=== PATIENT | male | born 1995 | race Hispanic/Latino ===

== ENCOUNTER 2016-08-25 14:55 | Outpatient (CLI) | payer BC ==
--- NOTE | 2016-08-25 20:21 | RAD ---
FACIAL BONES THREE VIEWS 08/25/16 On the lateral view, there was a questionable fracture near the bridge of the nose with minimal disp lacement. It is not seen optimally, but fracture is suspected here. Correlate with site of clinical pain. Otherwise, the facial bones appear intact. The surrounding paranasal sinuses are clear. The orbital rims and zygomatic arches appear intact. IMPRESSION: Suspicious for fracture at the bridge of the nasal bones. POS: HOME
== END 2016-08-25 14:56 | disposition home or self-care (01) ==
LOC: BURRAD 14:55
PROVIDERS: ATTEND Physician Assistant
DX: S09.93XA Unspecified injury of face, initial encounter (principal)
CPT/HCPCS: 70150

== ENCOUNTER 2017-01-23 00:46 | Emergency (ER) | payer BC, OTHER ==
[2017-01-23] MEDS ORDERED: Ibuprofen 800 MG TAB ONE (01:19)
--- NOTE | 2017-01-23 13:53 | RAD ---
LEFT KNEE FOUR VIEWS 01/23/2017 COMPARISON: No prior films were available for comparison. FINDINGS: No fracture, dislocation, or joint effusion is seen. All bone structures appear intact at this time . IMPRESSION: No acute bony findings. POS: HOME
== END 2017-01-23 01:27 | disposition home or self-care (01) ==
LOC: BURERS 00:46
DX: S80.02XA Contusion of left knee, initial encounter (principal); W50.0XXA Accidental hit or strike by another person, initial encounter; Y92.149 Unspecified place in prison as the place of occurrence of the external cause; Y99.0 Civilian activity done for income or pay

== ENCOUNTER 2019-05-15 07:15 | Emergency (ER) | payer BC, OTHER ==
[2019-05-15] MEDS ORDERED: Ibuprofen 200 MG TAB ONE ×2 (07:30)
--- NOTE | 2019-05-15 18:59 | RAD ---
LUMBAR SPINE THREE VIEWS: 05/15/19 No acute fracture was seen. Slight wedging of T11 and T12 was most often physiologic in this age grou p. Unless there was pain in this location, I would tend to discount the findings. There is a little b clare spurring between T11 and T12 which could even suggest there may have been old trauma here. The di sc spaces are normal in height. At most, there may be minor narrowing of L4-L5 but the finding is equ ivocal. There are some bony anomalies involving the L5 posterior elements. See CT report to follow. T he SI joints appear normal. IMPRESSION: No definite acute findings. See CT report to follow. POS: HOME
--- NOTE | 2019-05-15 19:31 | CT ---
CT LUMBAR SPINE: 05/15/[address] of the lumbar spine was done following trauma. The scan covered an area from about the mid T11 level through the upper sacrum. Axial slices were acquired, followed by coronal and sagittal jonny nstructions. No acute fracture was seen at any level. No surrounding hematoma was present. Findings by level follo w: T11: Scan through this level is just through the lower half of the vertebra. The area scanned showed no hint of an acute abnormality. T11-T12: No acute findings. T12-L1: No acute findings. The very minor wedging of T12 is most likely physiologic as I see no other abnormality here. L1-L2: No acute findings. L2-L3: No acute findings. L3-L4: No acute findings. L4-L5: There is a small central disc protrusion at this level that just touches the thecal sac but it does not appear to cause any significant impingement. L5: There is as pars defect on the left at the L5 level. The margins suggest that it is more likely o ld than new. There are also some abnormalities of the posterior elements leading to the spinous proce ss of L5. L5-S1: No evidence of disc herniation at this level. There is probably a spina bifida occulta defect at this level in the top of S1. The SI joints showed no acute changes in the area scanned. IMPRESSION: 1. No evidence of acute fracture. Mild wedging of T11 and T12 are most likely developmental, tho ugh all of T11 was not scanned. If pain is present at that level, then MRI would be useful in ruling out any acute trauma. 2. 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 3. 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 4. Mild central disc protrusion at L4-L5 without gross impingement. Findings discussed with Dr. King at 0819 on 05/15/19. POS: HOME
== END 2019-05-15 08:30 | disposition home or self-care (01) ==
LOC: BURERS 07:15
DX: M54.5 Low back pain (principal); F17.210 Nicotine dependence, cigarettes, uncomplicated; W22.8XXA Striking against or struck by other objects, initial encounter
CPT/HCPCS: 72100; 72131

== ENCOUNTER 2019-10-30 19:45 | Emergency (ER) | payer BC, OTHER ==
--- NOTE | 2019-10-30 20:19 | RAD ---
LEFT MIDDLE FINGER: 10/30/19 HISTORY: Injury to finger. FINDINGS: There is no signs of fracture or dislocation. IMPRESSION: Negative right middle finger. POS: [facility]
== END 2019-10-30 20:19 | disposition home or self-care (01) ==
LOC: BURERS 19:45
DX: S60.132A Contusion of left middle finger with damage to nail, initial encounter (principal); W23.0XXA Caught, crushed, jammed, or pinched between moving objects, initial encounter
CPT/HCPCS: 11740

== ENCOUNTER 2020-01-19 23:32 | Outpatient (CLI) | payer BC, OTHER ==
[2020-01-20 18:43] LABS: SARS-CoV-2 MS2 Positive; SARS-CoV-2 N Gene Negative; SARS-CoV-2 S Gene Negative; SARS-CoV-2 orf1ab Negative
== END 2020-01-19 23:33 | disposition home or self-care (01) ==
LOC: BURLABSP 23:32
PROVIDERS: ATTEND Family Medicine
DX: Z11.59 Encounter for screening for other viral diseases (principal)
CPT/HCPCS: 87635; U0003

== ENCOUNTER 2021-06-25 19:04 | Emergency (ER) | payer BC ==
[2021-06-25 19:43] LABS: #Basophils 0.1 thou/uL (0.0-0.2); #Eosinphils 0.2 thou/uL (0.0-0.7); #Lymphocytes 2.8 thou/uL (1.20-3.40); #Monocytes 0.7 thou/uL (0.11-0.59); #Neutrophils 9.5 thou/uL (1.40-6.50); %Basophils 0.7 % (0.0-1.0); %Eosinophils 1.4 % (0.0-10.0); %Lymphocytes 20.8 % (21.0-51.0); %Monocytes 5.1 % (0.0-10.0); Hemoglobin 16.1 g/dL (14.0-18.0); Mean Corpuscular HGB CONC 35.7 g/dL (32.0-36.0); Mean Corpuscular Hemoglobin 29.5 pg (27.0-31.0); Mean Corpuscular Volume 82.8 fL (78.0-98.0); Mean Platelet Volume 8.7 fL (7.4-10.4); Platelet Count 288 thou/uL (130-400); RBC Distribution Width 12.2 % (11.5-14.5); Red Blood Cell (RBC) Count 5.44 mill/uL (4.70-6.10); White Blood Cell (WBC) Count 13.2 thou/uL (4.8-10.8)
[2021-06-25] MEDS ORDERED: traMADol HCl 50 MG TAB ONE ×2 (19:48)
[2021-06-25] MEDS ORDERED: Dicyclomine 20 MG TAB ONE (19:49)
[2021-06-25 19:51] LABS: Bilirubin Negative (Negative); Blood, Urine Negative (Negative); Clarity Clear (Clear); Glucose, Urine (Dipstick) Negative (Negative); Ketone, Urine Negative (Negative); Leukocyte Negative (Negative); Nitrite Negative (Negative); Protein, Urine (Dipstick) Negative (Neg-Trace); Specific Gravity, Urine 1.025 (1.005-1.030); Urobilinogen 0.2 mg/dL (Less than 2)
[2021-06-25 20:00] LABS: ALT (SGPT) 39 U/L (8-55); AST (SGOT) 27 U/L (5-34); Albumin 4.3 g/dL (3.5-5.0); Alkaline Phosphatase 105 U/L (40-110); Anion Gap 17 mmol/L (10-20); BUN (Urea Nitrogen) 16 mg/dL (8.9-20.6); Bilirubin, Total 0.4 mg/dL (0.2-1.2); Calc. Creatinine Clearance 0 mL/min (70-130); Calcium 9.5 mg/dL (7.8-10.44); Carbon Dioxide 20 mmol/L (22-29); Chloride 106 mmol/L (98-107); Globulin 3.3 g/dL (2.4-3.5); Glucose 97 mg/dL (70-105); Lipase 41 U/L (8-78); Potassium 3.5 mmol/L (3.5-5.1); Protein, Total 7.6 g/dL (6.0-8.3); Sodium 139 mmol/L (136-145)
== END 2021-06-25 20:24 | disposition home or self-care (01) ==
LOC: BURERS 19:04
DX: K80.50 Calculus of bile duct without cholangitis or cholecystitis without obstruction (principal); F17.220 Nicotine dependence, chewing tobacco, uncomplicated
CPT/HCPCS: 80053; 81003; 83690; 85025; 99284

== ENCOUNTER 2024-02-19 11:24 | Emergency (ER) | payer BC, SELFPAY ==
[2024-02-19] MEDS ORDERED: Metoclopramide HCl 10 MG (2 mL) VIAL ONE (12:02)
[2024-02-19] MEDS ORDERED: Ketorolac Tromethamine 30 MG (1 mL) VIAL ONE (12:02)
== END 2024-02-19 13:08 | disposition home or self-care (01) ==
LOC: BURERS 11:24
DX: R51.9 Headache, unspecified (principal); F17.220 Nicotine dependence, chewing tobacco, uncomplicated
CPT/HCPCS: 96374; 96375; J1885; J2765

== ENCOUNTER 2024-09-29 21:36 | Emergency (ER) | payer BC ==
[2024-09-29] MEDS ORDERED: methylPREDNISolone Sod Succ/PF 125 MG/2 ML VIAL ONE (22:03)
== END 2024-09-29 22:10 | disposition home or self-care (01) ==
LOC: BURERS 21:36
DX: T78.1XXA Other adverse food reactions, not elsewhere classified, initial encounter (principal); F17.220 Nicotine dependence, chewing tobacco, uncomplicated
CPT/HCPCS: 96372; 99283; J2919

== ENCOUNTER 2025-06-30 20:39 | Emergency (ER) | payer BC ==
[2025-06-30] MEDS ORDERED: Mag-Al Plus 1200/1200/120 MG (30 mL) UDCUP ONE (21:42)
[2025-06-30] MEDS ORDERED: Lidocaine Viscous Sol 2% 15 ml UD Cup ONE (21:42)
== END 2025-06-30 22:29 | disposition home or self-care (01) ==
LOC: BURERS 20:39
DX: R10.12 Left upper quadrant pain (principal); R11.10 Vomiting, unspecified; F17.290 Nicotine dependence, other tobacco product, uncomplicated
CPT/HCPCS: 71046